=== PATIENT | male | born 1955 | race Caucasian/White ===

== ENCOUNTER → 2018-06-10 | Outpatient (CLI) | payer BC ==
--- NOTE | 2018-06-10 19:01 | Diagnostic Imaging Report ---
INDICATION: Bilateral shoulder pain. TIME OF EXAM: 02:57 p.m. Multiple views bilateral shoulders were obtained. The left shoulder show normal glenohumeral and acromioclavicular alignment. Acromiohumeral space is normal. No fracture or dislocation is seen. The right shoulder also shows normal alignment. No fracture dislocation is identified. A small calcific density projects in the acromiohumeral space which could indicate calcific tendinitis of rotator cuff. IMPRESSION: No acute bony abnormality is seen. There is no fracture or dislocation. There is some calcification on the right which could be owing to calcific tendinitis of the rotator cuff. No other abnormalities detected. Dictated by: Dictated on workstation # [id number]
== END ==
LOC: RAD FS 14:48
PROVIDERS: ATTEND Nurse Practitioner
DX: M25.512 Pain in left shoulder (principal); M25.811 Other specified joint disorders, right shoulder

== ENCOUNTER → 2018-06-14 | Outpatient (CLI) | payer BC ==
--- NOTE | 2018-06-14 13:46 | Diagnostic Imaging Report ---
EXAMINATION: Magnetic resonance imaging of the left shoulder without contrast. DATE: June 14, 2018. COMPARISON: Shoulder radiographs June 10, 2018. HISTORY: 63-year-old male, left shoulder pain and decreased range of motion. TECHNIQUE: Magnetic Resonance Imaging sequences were performed of the shoulder without contrast. FINDINGS: There is artifact and low [id number]-[id number] ratio which does limit the exam. ROTATOR CUFF, LIGAMENTS, TENDONS, AND MUSCLES: There are full thickness full width tears of the supraspinatus and infraspinatus tendons. The tendons are retracted between the level of the superior humeral head and glenoid. There is severe subscapularis tendinopathy. The teres minor tendon is intact. There is at least moderate fatty atrophy of the supraspinatus and infraspinatus muscles. LONG HEAD OF BICEPS: There is long head biceps tendinopathy. The long head of biceps tendon is normally positioned within the bicipital groove. There is no identified tear of the imaged portions of the long head of biceps tendon. GLENOHUMERAL JOINT: The humeral head is posteriorly subluxed and superiorly subluxed. The humeral head directly abuts the undersurface of the acromion. There is a probable small tear of the posterior inferior labrum. There is no identified paralabral cyst. There is a subchondral cyst in the inferior glenoid. There is mild glenohumeral cartilage thinning. There is no large glenohumeral joint effusion. ACROMIOCLAVICULAR JOINT: The acromioclavicular joint is normally aligned. The coracoclavicular and coracoacromial ligaments are intact. There is a small to moderate acromioclavicular joint effusion. There are mild acromioclavicular degenerative changes without undersurface osteophyte. BONE: There is no os acromiale. There is no acute fracture, bone contusion, or evidence of osteonecrosis. BURSAE AND SOFT TISSUES: There is fluid in the subacromial subdeltoid bursa compatible with the full-thickness rotator cuff tendon tears, bursitis, and/or recent injection. IMPRESSION: 1. Full-thickness fullwidth tears of the supraspinatus and infraspinatus tendons which are retracted between the level of the superior humeral head and glenoid. At least moderate fatty atrophy of the supraspinatus and infraspinatus muscles. Severe subscapularis tendinopathy. 2. Long head of biceps tendinopathy. 3. Mild acromioclavicular degenerative changes without large undersurface osteophyte. Small to moderate-sized acromioclavicular joint effusion. Which directly contacts the undersurface of the acromion. Mild glenohumeral osteoarthritis. 4. No acute fracture, bone contusion, or evidence of osteonecrosis. 5. Fluid in the subacromial subdeltoid bursa compatible with the full-thickness rotator cuff tendon tears, bursitis, and/or recent injection. Dictated by: Dictated on workstation # [id number]
== END ==
LOC: RAD 09:10
PROVIDERS: ATTEND Nurse Practitioner
DX: M75.102 Unspecified rotator cuff tear or rupture of left shoulder, not specified as traumatic (principal); M19.012 Primary osteoarthritis, left shoulder; M67.814 Other specified disorders of tendon, left shoulder
CPT/HCPCS: 73221

== ENCOUNTER → 2018-06-24 | Outpatient (CLI) | payer BC ==
--- NOTE | 2018-06-24 13:55 | Diagnostic Imaging Report ---
PROCEDURE: MRI right joint upper extremity without contrast. TECHNIQUE: Multiplanar, multisequence non contrast-enhanced MRI of the right upper extremity was accomplished. INDICATION: Rotator cuff syndrome. COMPARISON: No prior studies are available for comparison. FINDINGS: The biceps tendon appears to be within the bicipital groove. There appear to be complete tears involving the supraspinatus and infraspinatus tendons of the rotator cuff. There is superior migration of the humeral head in relation to the glenoid. Humeral head now contacts the undersurface of the acromion. There are some cystic degenerative changes in the humeral head. Rotator cuff does appear to be retracted to the level of the glenohumeral joint. Portions of the subscapularis tendon do appear to be intact. There is fluid within the subacromial subdeltoid bursa. Hypertrophic degenerative changes of the acromioclavicular joint noted. IMPRESSION: Complete tears of the supraspinatus and infraspinous tendons of the rotator cuff with retraction to the glenohumeral joint. There is superior migration of the humeral head which contacts the undersurface of the acromion. Fluid is identified within the subacromial subdeltoid bursa. There is also significant hypertrophic AC joint degenerative change. Dictated by: Dictated on workstation # [id number]
== END ==
LOC: RAD 12:52
PROVIDERS: ATTEND Nurse Practitioner
DX: M75.121 Complete rotator cuff tear or rupture of right shoulder, not specified as traumatic (principal); M19.011 Primary osteoarthritis, right shoulder
CPT/HCPCS: 73221

== ENCOUNTER 2022-11-18 09:32 | Emergency (ER) | payer MEDICARE ==
[~2022-11-18] VITALS: Ht 177.8 cm; Wt 78.4 kg
[2022-11-18 09:39] VITALS: BP 140/76
--- NOTE | 2022-11-18 09:44 | ED GU-Female ---
General Chief Complaint: - Reproductive Stated Complaint: ABD PAIN | BACK PAIN | History of Present Illness Date Seen by Provider: Nov 18, 2022 Time Seen by Provider: 09:39 Initial Comments 67-year-old male with no significant PMH is sent here from [facility] clinic with symptoms of left flank pain which is radiating to the groin, for a CT scan to rule out stones. 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 Patient reports dark-colored urine but denies dysuria, fever and chills, hematuria, diarrhea, URI symptoms. Patient has never had a stone in the past. Allergies and Home Medications Allergies Coded Allergies: No Known Drug Allergies (Unverified , 11/18/22) Patient Home Medication List Home Medication List Reviewed: Yes Review of Systems Review of Systems Constitutional: no symptoms reported EENTM: no symptoms reported Respiratory: no symptoms reported Cardiovascular: no symptoms reported Gastrointestinal: abdominal pain Genitourinary: flank pain Musculoskeletal: no symptoms reported Skin: no symptoms reported Psychiatric/Neurological: No Symptoms Reported Endocrine: No Symptoms Reported Hematologic/Lymphatic: No Symptoms Reported Physical Exam Vital Signs Vital Signs - First Documented 11/18/22 09:39 Temp 36.5 Pulse 54 Resp 18 B/P (MAP) 140/76 (97) Pulse Ox 100 O2 Delivery Room Air Capillary Refill : Height, Weight, BMI Height: '" Weight: lbs. oz. kg; BMI Method: General Appearance: mild distress HEENT: PERRL/EOMI Neck: non-tender, full range of motion, supple Cardiovascular: regular rate, rhythm Respiratory: chest non-tender, lungs clear Gastrointestinal: normal bowel sounds, soft, no organomegaly, tenderness (Tenderness in the left flank into the left groin area. No mass or swelling in the groin area.) Back: normal inspection, no vertebral tenderness, CVA tenderness (L) Extremities: normal range of motion Neurologic/Psychiatric: alert, normal mood/affect, oriented x 3 Skin: normal color Progress/Results/Core Measures Suspected Sepsis SIRS Temperature: Pulse: Respiratory Rate: Laboratory Tests 11/18/22 09:40: White Blood Count 7.2 Blood Pressure / Mean: Laboratory Tests 11/18/22 09:40: Creatinine 0.98, Platelet Count 206, Total Bilirubin 0.4 Results/Orders Lab Results Laboratory Tests Test 11/18/22 09:35 11/18/22 09:40 Range/Units Urine Color YELLOW Urine Clarity CLEAR Urine pH 6.0 5-9 Urine Specific Cactus >=1.030 1.016-1.022 Urine Protein NEGATIVE NEGATIVE Urine Glucose (UA) NEGATIVE NEGATIVE Urine Ketones 1+ H NEGATIVE Urine Nitrite NEGATIVE NEGATIVE Urine Bilirubin NEGATIVE NEGATIVE Urine Urobilinogen 0.2 < = 1.0 MG/DL Urine Leukocyte Esterase NEGATIVE NEGATIVE Urine RBC (Auto) 3+ H NEGATIVE Urine RBC 50-100 H /HPF Urine WBC NONE /HPF Urine Squamous Epithelial Cells 5-10 /HPF Urine Crystals NONE /LPF Urine Bacteria TRACE /HPF Urine Casts NONE /LPF Urine Mucus LARGE H /LPF Urine Culture Indicated NO White Blood Count 7.2 4.3-11.0 10^3/uL Red Blood Count 4.41 4.30-5.52 10^6/uL Hemoglobin 13.5 13.3-17.7 g/dL Hematocrit 40 40-54 % Mean Corpuscular Volume 91 80-99 fL Mean Corpuscular Hemoglobin 31 25-34 pg Mean Corpuscular Hemoglobin Concent 34 32-36 g/dL Red Cell Distribution Width 12.3 10.0-14.5 % Platelet Count 206 130-400 10^3/uL Mean Platelet Volume 9.6 9.0-12.2 fL Immature Granulocyte % (Auto) 0 % Neutrophils (%) (Auto) 86 H 42-75 % Lymphocytes (%) (Auto) 8 L 12-44 % Monocytes (%) (Auto) 4 0-12 % Eosinophils (%) (Auto) 1 0-10 % Basophils (%) (Auto) 1 0-10 % Neutrophils # (Auto) 6.2 1.8-7.8 10^3/uL Lymphocytes # (Auto) 0.6 L 1.0-4.0 10^3/uL Monocytes # (Auto) 0.3 0.0-1.0 10^3/uL Eosinophils # (Auto) 0.1 0.0-0.3 10^3/uL Basophils # (Auto) 0.0 0.0-0.1 10^3/uL Immature Granulocyte # (Auto) 0.0 0.0-0.1 10^3/uL Neutrophils % (Manual) 87 % Lymphocytes % (Manual) 7 % Monocytes % (Manual) 4 % Eosinophils % (Manual) 2 % Sodium Level 139 135-145 MMOL/L Potassium Level 4.0 3.6-5.0 MMOL/L Chloride Level 106 98-107 MMOL/L Carbon Dioxide Level 24 21-32 MMOL/L Anion Gap 9 5-14 MMOL/L Blood Urea Nitrogen 20 H 7-18 MG/DL Creatinine 0.98 0.60-1.30 MG/DL Estimat Glomerular Filtration Rate 86 BUN/Creatinine Ratio 20 Glucose Level 174 H 70-105 MG/DL Calcium Level 10.3 H 8.5-10.1 MG/DL Corrected Calcium 10.1 8.5-10.1 MG/DL Total Bilirubin 0.4 0.1-1.0 MG/DL Aspartate Amino Transf (AST/SGOT) 29 5-34 U/L Alanine Aminotransferase (ALT/SGPT) 32 0-55 U/L Alkaline Phosphatase 83 40-136 U/L Total Protein 6.2 L 6.4-8.2 GM/DL Albumin 4.2 3.2-4.5 GM/DL Lipase 28 8-78 U/L My Orders Orders - COLETTE STREETER MD Cbc With Automated Diff (11/18/22 09:44) Comprehensive Metabolic Panel (11/18/22 09:44) Lactic Acid Analyzer (11/18/22 09:44) Lipase (11/18/22 09:44) Ua Culture If Indicated (11/18/22 09:44) Manual Differential (11/18/22 09:40) Ct Abdomen/Pelvis Wo (11/18/22 10:00) Ketorolac Injection (Ketorolac Injection (11/18/22 10:15) Ondansetron Injection (Zofran Injectio (11/18/22 10:15) Medications Given in ED Current Medications Medications Dose Ordered Sig/Harriet Route Start Time Stop Time Status Last Admin Dose Admin Ketorolac Tromethamine 15 mg ONCE ONCE IVP 11/18/22 10:15 11/18/22 10:16 DC 11/18/22 10:07 15 MG Ondansetron HCl 4 mg ONCE ONCE IVP 11/18/22 10:15 11/18/22 10:16 DC 11/18/22 10:07 4 MG Vital Signs/I&O 11/18/22 09:39 Temp 36.5 Pulse 54 Resp 18 B/P (MAP) 140/76 (97) Pulse Ox 100 O2 Delivery Room Air Capillary Refill : Progress Note : Progress Note 1. LEFT SIDE NEPHROLITHIASIS: - CT ABD WITHOUT CONTRAST: Obstructing 5 mm calculus in the distal left ureter near the ureterovesicular junction with moderate left hydroureteronephrosis. - CBC/CMP: unremarkable, normal WBC - UA is positive for RBC, no signs of infection. - Toradol 15mg iv and Zofran 4mg iv STAT, with resolution of pain with these medications - Tried calling [facility] many times for Urology consult, but no one is picking up the phone. In the meantime, pt's symptoms resolved, so advised to follow up with Urology LEENA and info for Urology at both [place] and [facility] was given. Pt was fine with this plan since his pain resolved. - CT ABD shows: Obstructing 5 mm calculus in the distal left ureter near the ureterovesicular junction with moderate left hydroureteronephrosis. - Adequate hydration advised , 8-10 glasses of water - Prescription given for ketorolac 10 mg, to be taken every 6 hours as needed for pain, and Zofran ODT 4 mg every 6 hours as needed for nausea or vomiting. - Follow up with Urology in the morning. If symptoms worsen, or fever develops, return to ER. -The patient was seen in the ED, and treated appropriately to presentation at a specific point in time. Patient is informed that there is a possibility that disease and illness can evolve and change in acuity rapidly or slowly after patient is discharged from the ER. Precautionary advice given to the patient for immediate return to ER if symptoms worsen or do not resolve, and to seek emergency care sooner rather than later. Pt also advised on the importance of PCP follow up and compliance with management and follow up plan with PCP and/or specialist, as this is part of the management plan. Pt verbally expressed understanding. [facility]: [facility] [place] [address], [address], [place] [address] [facility]: [address], [place] [id number] Diagnostic Imaging Diagonstic Imaging: CT Plain Films/CT/US/NM/MRI: abdomen Comments [facility] [place] NAME: MARY SOMERS [facility] REC#: [id number] PT STATUS: REG ER : 1955 PHYSICIAN: COLETTE STREETER MD ADMIT DATE: 11/18/22/ER FS Draft Date of Exam:11/18/22 CT ABDOMEN/PELVIS WO PROCEDURE: CT abdomen and pelvis without contrast. TECHNIQUE: Multiple contiguous axial images were obtained through the abdomen and pelvis without the use of intravenous contrast. Auto Exposure Controls were utilized during the CT exam to meet ALARA standards for radiation dose reduction. INDICATION: Left flank pain COMPARISON: None FINDINGS: The lung bases are clear. The heart is normal in size. There is a tiny hiatal hernia. The liver demonstrates no focal lesions on this noncontrast exam. The spleen appears normal. The pancreas is normal. The adrenal glands appear normal. The right kidney has no hydronephrosis or calculi. The left kidney has moderate hydronephrosis and there is moderate hydroureter. There is significant perirenal fat stranding. There is an obstructing calculus in the distal left ureter just before the ureterovesicular junction. This calculus measures up to 5 mm in size. The bowel loops are nondistended without obstruction. There are no findings of appendicitis. No free fluid or free air is seen. There is calcific atherosclerosis. The aorta is normal in caliber. No acute osseous abnormality is seen. There are advanced degenerative changes in the spine with chronic compression deformity of L2. 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 IMPRESSION: 1. Obstructing 5 mL calculus in the distal left ureter near the ureterovesicular junction with moderate left hydroureteronephrosis. Dictated on workstation # [id number] Dict: 11/18/22 1020 Trans: 11/18/[address] [facility] [id number] Interpreted by: NOEL ERNST MD Electronically signed by: Departure Impression Primary Impression: Left renal stone Additional Impression: Hydroureteronephrosis Disposition: HOME, SELF-CARE Condition: Improved Departure-Patient Inst. Referrals: [facility] (PCP) Primary Care Physician STEPHANIE JORDAN MD (Family) Primary Care Physician Patient Instructions: Kidney Stone, Adult ED, Kidney Stone Diet, Renal Colic Add. Discharge Instructions: - CT ABD shows: Obstructing 5 mm calculus in the distal left ureter near the ureterovesicular junction with moderate left hydroureteronephrosis. - Adequate hydration advised , 8-10 glasses of water - Prescription given for ketorolac 10 mg, to be taken every 6 hours as needed for pain, and Zofran ODT 4 mg every 6 hours as needed for nausea or vomiting. - Follow up with Urology in the morning. If symptoms worsen, or fever develops, return to ER. [facility]: [facility] - [place] [address], [address], [place] [address] [facility]: [address] [place] [address] Scripts Ondansetron (Ondansetron Odt) 4 Mg Tab.rapdis 4 MG SL Q6H PRN for NAUSEA/VOMITING for 3 Days, #12 TAB Prov: COLETTE STREETER MD 11/18/22 Ketorolac Tromethamine (Ketorolac Tromethamine) 10 Mg Tablet 10 MG PO Q6H for Pain for 3 Days, #15 TAB Prov: COLETTE STREETER MD 11/18/22 COLETTE STREETER MD Nov 18, 2022 09:44
[2022-11-18 09:49] LABS: BILIRUBIN,URINE NEGATIVE (NEGATIVE); CLARITY,URINE CLEAR; COLOR,URINE YELLOW; GLUCOSE, URINE (UA) NEGATIVE (NEGATIVE); KETONES,URINE 1+ (NEGATIVE); LEUKOCYTE ESTERASE ,URINE NEGATIVE (NEGATIVE); NITRITE,URINE NEGATIVE (NEGATIVE); PROTEIN,URINE NEGATIVE (NEGATIVE)
[2022-11-18 09:50] LABS: BASOPHILS % (AUTO) 1 % (0-10); EOSINOPHILS # (AUTO) 0.1 10^3/uL (0.0-0.3); EOSINOPHILS % (AUTO) 1 % (0-10); HEMATOCRIT 40 % (40-54); HEMOGLOBIN 13.5 g/dL (13.3-17.7); LYMPHOCYTES # (AUTO) 0.6 10^3/uL (1.0-4.0); LYMPHOCYTES % (AUTO) 8 % (12-44); MEAN CORPUSCULAR HEMOGLOBIN 31 pg (25-34); MEAN CORPUSCULAR HGB CONC 34 g/dL (32-36); MEAN CORPUSCULAR VOLUME 91 fL (80-99); MEAN PLATELET VOLUME 9.6 fL (9.0-12.2); MONOCYTES # (AUTO) 0.3 10^3/uL (0.0-1.0); MONOCYTES % (AUTO) 4 % (0-12); NEUTROPHILS # (AUTO) 6.2 10^3/uL (1.8-7.8); NEUTROPHILS % (AUTO) 86 % (42-75); PLATELET COUNT 206 10^3/uL (130-400); WHITE BLOOD COUNT 7.2 10^3/uL (4.3-11.0)
[2022-11-18 09:53] LABS: BACTERIA,URINE TRACE /HPF; RBC,URINE 50-100 /HPF
[2022-11-18 10:09] LABS: ALBUMIN 4.2 GM/DL (3.2-4.5); BILIRUBIN,TOTAL 0.4 MG/DL (0.1-1.0); CALCIUM 10.3 MG/DL (8.5-10.1); CREATININE SERUM 0.98 MG/DL (0.60-1.30); TOTAL PROTEIN 6.2 GM/DL (6.4-8.2)
[2022-11-18] MEDS ORDERED: KETOROLAC INJ 15 MG/ML VIAL IVP ONE (10:15)
[2022-11-18] MEDS ORDERED: ONDANSETRON INJECTION 4 MG/2 ML (SDV) IVP ONE (10:15)
[2022-11-18 10:21] LABS: EOSINOPHILS % (MANUAL) 2 %; LYMPHOCYTES % (MANUAL) 7 %; MONOCYTES % (MANUAL) 4 %; NEUTROPHILS % (MANUAL) 87 %
--- NOTE | 2022-11-18 10:32 | Diagnostic Imaging Report ---
PROCEDURE: CT abdomen and pelvis without contrast. TECHNIQUE: Multiple contiguous axial images were obtained through the abdomen and pelvis without the use of intravenous contrast. Auto Exposure Controls were utilized during the CT exam to meet ALARA standards for radiation dose reduction. INDICATION: Left flank pain COMPARISON: None FINDINGS: The lung bases are clear. The heart is normal in size. There is a tiny hiatal hernia. The liver demonstrates no focal lesions on this noncontrast exam. The spleen appears normal. The pancreas is normal. The adrenal glands appear normal. The right kidney has no hydronephrosis or calculi. The left kidney has moderate hydronephrosis and there is moderate hydroureter. There is significant perirenal fat stranding. There is an obstructing calculus in the distal left ureter just before the ureterovesicular junction. This calculus measures up to 5 mm in size. The bowel loops are nondistended without obstruction. There are no findings of appendicitis. No free fluid or free air is seen. There is calcific atherosclerosis. The aorta is normal in caliber. No acute osseous abnormality is seen. There are advanced degenerative changes in the spine with chronic compression deformity of L2. 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 IMPRESSION: 1. Obstructing 5 mL calculus in the distal left ureter near the ureterovesicular junction with moderate left hydroureteronephrosis. Dictated by: Dictated on workstation # [id number]
[2022-11-18] MEDS ORDERED: ONDA4TAB11 SL (11:36)
[2022-11-18] MEDS ORDERED: KETO10TA PO (11:36)
== END 2022-11-18 11:44 | disposition home or self-care (01) ==
LOC: EDUNIT# 09:32 → ER FS 09:34
DX: N13.2 Hydronephrosis with renal and ureteral calculous obstruction (principal)
CPT/HCPCS: 36415; 74176; 80053; 81000; 83690; 85007; 85027